=== PATIENT | male | born 1970 | race Caucasian/White ===

== ENCOUNTER → 2021-05-08 | Outpatient (CLI) | payer OTHER ==
--- NOTE | 2021-05-08 12:30 | Diagnostic Imaging Report ---
INDICATION: Cough and shortness of breath. TIME OF EXAM: 10:37 AM No prior studies are available for comparison. Finding: The heart size is normal. The pulmonary vascularity is unremarkable. The lungs are clear. No infiltrate, effusion or pneumothorax is detected. Impression: No acute cardiopulmonary process is detected. Dictated by: Dictated on workstation # [id number]
== END ==
LOC: RAD FS 10:26
PROVIDERS: ATTEND Nurse Practitioner Family
DX: R05.8 Other specified cough (principal); R06.02 Shortness of breath; Z86.16 Personal history of COVID-19
CPT/HCPCS: 71046